=== PATIENT | male | born 1955 | race Caucasian/White ===

== ENCOUNTER → 2016-04-10 | Outpatient (CLI) | payer MEDICARE, OTHER ==
[2016-04-10 14:45] LABS: ALT 42 U/L (21-72); AST 21 U/L (17-59); Alkaline Phosphatase 56 U/L (38-126); Anion Gap 10 mmol/L; Blood Urea Nitrogen 15 mg/dL (9-20); Calcium 9.2 mg/dL (8.4-10.2); Carbon Dioxide 27 mmol/L (22-30); Chloride 107 mmol/L (98-107); Glucose 99 mg/dL (74-99); Non-African American GFR(MDRD) >60 (>60 ml/min/1.73 sqM); Potassium 4.4 mmol/L (3.5-5.1); Sodium 144 mmol/L (137-145); Total Bilirubin 0.7 mg/dL (0.2-1.3); Total Protein 6.1 g/dL (6.3-8.2)
[2016-04-10 15:51] LABS: Vitamin B12 292 pg/mL (239-931)
== END | disposition home or self-care (01) ==
LOC: LABWHC1 13:42
PROVIDERS: ATTEND Physician Assistant
DX: G35 Multiple sclerosis (principal); E53.8 Deficiency of other specified B group vitamins; F43.23 Adjustment disorder with mixed anxiety and depressed mood; M48.02 Spinal stenosis, cervical region; M51.9 Unspecified thoracic, thoracolumbar and lumbosacral intervertebral disc disorder; I25.10 Atherosclerotic heart disease of native coronary artery without angina pectoris
CPT/HCPCS: 36415; 80053; 82306; 82607; 82746

== ENCOUNTER → 2017-09-07 | Outpatient (CLI) | payer MEDICARE, OTHER ==
[2017-09-07 14:16] LABS: Blood Urea Nitrogen 14 mg/dL (9-20)
[2017-09-07 16:47] LABS: ALT 47 U/L (21-72); AST 29 U/L (17-59); Albumin 3.9 g/dL (3.5-5.0); Alkaline Phosphatase 59 U/L (38-126); Anion Gap 11 mmol/L; Blood Urea Nitrogen 13 mg/dL (9-20); Carbon Dioxide 26 mmol/L (22-30); Chloride 106 mmol/L (98-107); Glucose 87 mg/dL (74-99); Potassium 4.2 mmol/L (3.5-5.1); Sodium 143 mmol/L (137-145); Total Bilirubin 0.3 mg/dL (0.2-1.3); Total Protein 5.8 g/dL (6.3-8.2)
[2017-09-07 17:02] LABS: T4, Free (Free Thyroxine) 1.16 ng/dL (0.78-2.19)
[2017-09-07 18:24] LABS: Basophils % (A) 0 %; Eosinophils % (A) 1 %; HCT 41.2 % (39.0-53.0); HGB 13.7 gm/dL (13.0-17.5); Lymphocytes # (A) 0.6 k/uL (1.0-4.8); Lymphocytes % (A) 24 %; MCH 31.7 pg (25.0-35.0); MCHC 33.3 g/dL (31.0-37.0); MCV 95.1 fL (80.0-100.0); Mean Platelet Volume 7.2; Monocytes # (A) 0.2 k/uL (0-1.0); Monocytes % (A) 10 %; Neutrophils # (A) 1.5 k/uL (1.3-7.7); Neutrophils % (A) 61 %; Platelet Count 140 k/uL (150-450); RBC 4.33 m/uL (4.30-5.90); RDW 13.3 % (11.5-15.5); WBC 2.4 k/uL (3.8-10.6)
--- NOTE | 2017-09-07 23:43 | MR ---
EXAMINATION TYPE: MR brain/cspine wo/w DATE OF EXAM: 09/07/2017 COMPARISON: 06/01/2014 and 05/31/2014 HISTORY: Neck pain, MS follow up, compare to prior MRI TECHNIQUE: Multiplanar, multisequence images of the brain and brainstem is performed without and with IV contras t, utilizing 7.5 mL intravenous Gadavist . FINDINGS: There is mild cerebral cortical atrophy. There is no mass effect nor midline shift. There i s no sign of intracranial hemorrhage. There is a 3 mm focus of increased signal in the right side of the german on the FLAIR images. There is 7 mm focus of increased signal in the anterior limb left inter nal capsule. There is no mass effect nor midline shift. There is no sign of intracranial hemorrhage. Corpus callosum appears intact. The sella turcica appears normal. There is no pathologic enhancement. The cervical spine exam shows normal alignment of the vertebra. There is small posterior disc bulges at C4-5 C5-6. There is no spinal stenosis. There is developmentally adequate spinal canal. Cervical s felix cord has fairly normal signal pattern. There is a subtle small area of increased signal in the posterior cervical spinal cord on the T2 images on the sagittal exam and is present at C2 level. I se e no cervical spine pathologic enhancement. IMPRESSION: There are 2 foci of increased signal in the white matter as above in the left internal ca psule and right side of the german. These appear new compared to old exam of 05/31/2014. These are nonsp ecific and are not a typical pattern for demyelinating disease. This is most likely small vessel isch emia related. Cervical spine shows posterior mild disc herniations at C4-5 C5-6 without spinal stenosis. There is s ubtle small area of increased signal on the T2 images posteriorly at C2 level which could relate to d emyelinating disease and appears smaller than the last exam.
== END | disposition home or self-care (01) ==
LOC: RADMRIMAIN 13:37
PROVIDERS: ATTEND Psychiatry & Neurology Neurology
DX: M50.221 Other cervical disc displacement at C4-C5 level (principal); R93.0 Abnormal findings on diagnostic imaging of skull and head, not elsewhere classified; G35 Multiple sclerosis; E55.9 Vitamin D deficiency, unspecified
CPT/HCPCS: 84207; 84439; 84481; 80053; 82607; 82565; 84443; 84520; 85025; 82306; 70553; 72156; 36415; A9581

== ENCOUNTER → 2017-09-09 | Outpatient (CLI) | payer MEDICARE, OTHER ==
--- NOTE | 2017-09-09 16:16 | MR ---
EXAMINATION TYPE: MR thoracic spine wo/w con DATE OF EXAM: 09/09/2017 COMPARISON: NONE HISTORY: Multiple sclerosis/Thoracic pain CONTRAST: Standard multiplanar, multisequence MRI of the thoracic spine per departmental protocol was performed utilizing 7.5 mL intravenous Gadavist gadolinium contrast. FINDINGS: The thoracic vertebral bodies maintain normal vertebral body heights and alignment. Bone ma rrow signal is within normal limits. The thoracic cord demonstrates normal signal throughout. No extr adural suspicious fluid collections. Mild epidural lipomatosis is noted of the midthoracic level post eriorly. Specifically on FLAIR sagittal sequence no abnormal cord signal is seen within the thoracic spine. On postcontrast images there is no abnormal enhancement of the thoracic spine or vertebral bod ies. At T8-T9 there is a very small right paracentral disc herniation without spinal canal stenosis or leonid ral foraminal narrowing. T9-T10 there is a very small right eccentric disc bulge without neural foraminal narrowing or spinal canal stenosis. Within the remainder of the thoracic spine there is no evidence of significant disc disease, spinal c anal stenosis or neural foraminal narrowing. The paraspinal muscles are unremarkable. Minimal bibasil ar subsegmental atelectasis is seen dependently within the lungs. IMPRESSION: 1. Small right paracentral disc herniation at T8-T9 without spinal canal stenosis or neural foraminal narrowing. 2. Mild degenerative disc disease at T9-T10 without spinal canal stenosis or neural foraminal narrowi ng. 3. No demyelinating plaque seen within the thoracic cord. No abnormal contrast enhancement.
== END | disposition home or self-care (01) ==
LOC: RADMRIMAIN 14:32
PROVIDERS: ATTEND Psychiatry & Neurology Neurology
DX: M51.24 Other intervertebral disc displacement, thoracic region (principal); M51.34 Other intervertebral disc degeneration, thoracic region; M54.2 Cervicalgia; G35 Multiple sclerosis
CPT/HCPCS: 72157; A9581

== ENCOUNTER → 2017-11-15 | Outpatient (CLI) | payer MEDICARE ==
[2017-11-15 15:09] LABS: Basophils % (A) 1 %; Eosinophils % (A) 1 %; HCT 39.5 % (39.0-53.0); HGB 13.3 gm/dL (13.0-17.5); Lymphocytes # (A) 0.6 k/uL (1.0-4.8); Lymphocytes % (A) 19 %; MCH 31.5 pg (25.0-35.0); MCHC 33.6 g/dL (31.0-37.0); MCV 93.7 fL (80.0-100.0); Mean Platelet Volume 7.3; Monocytes # (A) 0.3 k/uL (0-1.0); Monocytes % (A) 10 %; Neutrophils # (A) 2.1 k/uL (1.3-7.7); Neutrophils % (A) 67 %; Platelet Count 156 k/uL (150-450); RBC 4.21 m/uL (4.30-5.90); RDW 13.1 % (11.5-15.5); WBC 3.1 k/uL (3.8-10.6)
[2017-11-15 15:21] LABS: ALT 41 U/L (21-72); AST 20 U/L (17-59); Alkaline Phosphatase 53 U/L (38-126); Anion Gap 7 mmol/L; Blood Urea Nitrogen 16 mg/dL (9-20); Calcium 8.9 mg/dL (8.4-10.2); Carbon Dioxide 25 mmol/L (22-30); Chloride 108 mmol/L (98-107); Glucose 106 mg/dL (74-99); Potassium 4.2 mmol/L (3.5-5.1); Sodium 140 mmol/L (137-145); Total Bilirubin 0.4 mg/dL (0.2-1.3)
[2017-11-15 18:56] LABS: Vitamin D 25 Hydroxy 21.7 ng/mL (30.0-100.0)
== END | disposition home or self-care (01) ==
LOC: LABWHC1 14:16
PROVIDERS: ATTEND Nurse Practitioner Acute Care
DX: R25.2 Cramp and spasm (principal); E55.9 Vitamin D deficiency, unspecified; R53.83 Other fatigue; G35 Multiple sclerosis
CPT/HCPCS: 36415; 80053; 82306; 82607; 85025

== ENCOUNTER → 2018-02-14 | Outpatient (CLI) | payer MEDICARE ==
[2018-02-14 17:29] LABS: Basophils % (A) 1 %; Eosinophils % (A) 1 %; HCT 41.8 % (39.0-53.0); HGB 13.7 gm/dL (13.0-17.5); Lymphocytes # (A) 0.6 k/uL (1.0-4.8); Lymphocytes % (A) 19 %; MCH 31.6 pg (25.0-35.0); MCHC 32.8 g/dL (31.0-37.0); MCV 96.3 fL (80.0-100.0); Mean Platelet Volume 6.5; Monocytes # (A) 0.3 k/uL (0-1.0); Monocytes % (A) 9 %; Neutrophils # (A) 2.1 k/uL (1.3-7.7); Neutrophils % (A) 67 %; Platelet Count 161 k/uL (150-450); RBC 4.34 m/uL (4.30-5.90); RDW 12.9 % (11.5-15.5); WBC 3.2 k/uL (3.8-10.6)
== END ==
LOC: LABWHC1 15:28
PROVIDERS: ATTEND Nurse Practitioner Acute Care
DX: G35 Multiple sclerosis (principal); Z51.81 Encounter for therapeutic drug level monitoring
CPT/HCPCS: 36415; 85025

== ENCOUNTER → 2018-08-25 | Outpatient (CLI) | payer MEDICARE | END | disposition home or self-care (01) | LOC: LABWHC1 13:17 | PROVIDERS: ATTEND Nurse Practitioner Acute Care | DX: E55.9 Vitamin D deficiency, unspecified (principal); R53.83 Other fatigue | CPT/HCPCS: 36415; 84207 ==

== ENCOUNTER → 2018-10-13 | Outpatient (CLI) | payer MEDICARE, OTHER ==
--- NOTE | 2018-10-13 15:19 | US ---
EXAMINATION TYPE: US venous doppler duplex LE RT DATE OF EXAM: 10/13/2018 2:30 PM COMPARISON: NONE CLINICAL HISTORY: M79.661 PAIN IN RT LOWER LIMB. Right lower leg pain in the mornings x 5 days SIDE PERFORMED: Right TECHNIQUE: The lower extremity deep venous system is examined utilizing real time linear array sonog ayana with graded compression, doppler sonography and color-flow sonography. VESSELS IMAGED: External Iliac Vein (EIV) Common Femoral Vein Deep Femoral Vein Greater Saphenous Vein * Femoral Vein Popliteal Vein Small Saphenous Vein * Proximal Calf Veins (* superficial vessels) Grayscale, color doppler, spectral doppler imaging performed of the deep veins of the right lower ext remity. There is normal flow, compressibility, vascular waveforms. Right Leg: Appears negative for DVT IMPRESSION: No sonographic evidence of deep venous thrombosis within the right lower extremity.
== END | disposition home or self-care (01) ==
LOC: RADUSWWP 14:08
PROVIDERS: ATTEND Family Medicine
DX: M79.661 Pain in right lower leg (principal)

== ENCOUNTER → 2019-08-25 | Outpatient (CLI) | payer MEDICARE, OTHER ==
[2019-08-25 13:18] LABS: HCT 43.7 % (39.0-53.0); HGB 14.2 gm/dL (13.0-17.5); MCHC 32.6 g/dL (31.0-37.0); MCV 95.2 fL (80.0-100.0); Mean Platelet Volume 7.3; Platelet Count 174 k/uL (150-450); RBC 4.59 m/uL (4.30-5.90); RDW 12.4 % (11.5-15.5); WBC 3.9 k/uL (3.8-10.6)
[2019-08-25 19:53] LABS: African American GFR (CKD) 107.9 (60.0-200.0); Anion Gap 6.7 mmol/L (4.00-12.00); Carbon Dioxide 26.3 mmol/L (21.6-31.8); Non-African American GFR(CKD) 93.1 (60.0-200.0); Potassium 4.7 mmol/L (3.5-5.5)
== END | disposition home or self-care (01) ==
LOC: LABWHC1 12:11
PROVIDERS: ATTEND Internal Medicine Interventional Cardiology
DX: Z11.59 Encounter for screening for other viral diseases (principal)
CPT/HCPCS: 36415; 80051; 82565; 84520; 85027; 87635

== ENCOUNTER → 2019-08-30 | Day surgery (SDC) | payer MEDICARE, OTHER ==
[2019-08-29 09:46] VITALS: BMI 26.2
[~2019-08-30] MED LIST: ALPRAZolam 0.25 MG TAB PO PRN; ALPRAZolam 0.5 MG TAB PO PRN; ASPIRIN 325 MG TAB PO ONE; ATORVASTATIN 80 MG TAB PO ONE; BIVALIRUDIN 250 MG in SODIUM CHLORIDE 0.9% 50 ML IV ONE; BIVALIRUDIN BOLUS 250 MG/50 ML IV ONE; CLOPIDOGREL 75 MG TAB ONE; CLOPIDOGREL 75 MG TAB PO ONE; HEPARIN SODIUM 1,000 UN/ML (10ML VL) IV ONE; HYDROmorphone 1 MG/ML 1 ML SYRINGE IVP ONE; HYDROmorphone 1 MG/ML 1 ML SYRINGE ONE; IOPAMIDOL-370 100ML BTL INJ ONE; LIDOCAINE 1% INJ 10MG/ML (20 ML MDV) SQ ONE; MIDAZOLAM 2 MG/2 ML VIAL IVP ONE; NITROGLYCERIN SL TABS 0.4 MG TAB SUBLINGUAL PRN; SODIUM CHLORIDE 0.9% 1,000 ML IV SCH; SODIUM CHLORIDE 0.9% 1,000 ML in EMPTY BAG 1 BAG IV ONE; VERAPAMIL SYRINGE (5 MG/10 ML) INTRAARTER ONE
[2019-08-30 11:25] VITALS: RESP 16; TEMP 97.5
[2019-08-30 11:31] LABS: Basophils % (A) 1 %; Eosinophils # (A) 0.1 k/uL (0-0.7); Eosinophils % (A) 3 %; HCT 41.3 % (39.0-53.0); HGB 14.2 gm/dL (13.0-17.5); Lymphocytes # (A) 0.8 k/uL (1.0-4.8); Lymphocytes % (A) 24 %; MCH 32.6 pg (25.0-35.0); MCHC 34.4 g/dL (31.0-37.0); MCV 94.6 fL (80.0-100.0); Mean Platelet Volume 7.5; Monocytes # (A) 0.3 k/uL (0-1.0); Monocytes % (A) 10 %; Neutrophils # (A) 1.9 k/uL (1.3-7.7); Neutrophils % (A) 60 %; Platelet Count 156 k/uL (150-450); RBC 4.36 m/uL (4.30-5.90); RDW 12.5 % (11.5-15.5); WBC 3.2 k/uL (3.8-10.6)
[2019-08-30 11:39] LABS: African American GFR (CKD) >90 (>60 ml/min/1.73 sqM); Anion Gap 7 mmol/L; Blood Urea Nitrogen 16 mg/dL (9-20); Calcium 8.6 mg/dL (8.4-10.2); Carbon Dioxide 22 mmol/L (22-30); Chloride 110 mmol/L (98-107); Glucose 94 mg/dL (74-99); Non-African American GFR(CKD) >90 (>60 ml/min/1.73 sqM); Potassium 4.8 mmol/L (3.5-5.1); Sodium 139 mmol/L (137-145)
--- NOTE | 2019-08-30 14:44 | CC ---
CARDIAC CATHETERIZATION REPORT DATE OF SERVICE: 08/30/2019 PROCEDURE: 1. Left heart catheterization and coronary angiography. 2. PTCA and stenting of a restenotic lesion of an in-stent restenosis in mid LAD with a drug-eluting stent. PERFORMED BY: Dr. Emily Keenan. Moderate conscious sedation time was 51 minutes. Patient was administered Versed. Oxygen saturation, hemodynamics, EKG were monitored closely. He also received Dilaudid. CLINICAL INFORMATION: Mr. Maxime Crawford is a 64-year-old gentleman with a history of marijuana abuse, past history of smoking which he does smoke occasionally. He has known CAD, hypertension and hypercholesterolemia. In 2007, he underwent stenting of mid LAD at [facility] in [place]. In 2012, this LAD was patent. I performed stenting of a very highly diseased mid RCA of a dominant vessel with excellent result. He has been having symptoms of angina and also had abnormal stress test. Therefore, he was advised cardiac catheterization after due discussion regarding risks, benefits, and options. PROCEDURE NOTE: Under local anesthesia and strict aseptic precautions, a 6-Malay sheath was placed in the right radial artery. Using a 3.5, right and left catheters I performed coronary angiography and noted that the RCA was widely patent, but LAD had a significant restenotic lesion in the proximal half of the stent of about 80% to 90% with sluggish flow. He was advised intervention that was performed in the same setting. LV pressures were checked with the same right catheter but I did not do LV-gram. Following the procedure, I took the sheath out and applied a TR band as per protocol and saturation of the fingers of the right hand was 91%. Patient tolerated the procedure well. CARDIAC CATHETERIZATION FINDINGS: The left ventricular end-diastolic pressure was about 12 mmHg. There was no gradient across the aortic valve. CORONARY ANGIOGRAPHY FINDINGS: RIGHT CORONARY ARTERY: Technically this is a dominant vessel, widely patent. No significant disease. The mid segment which was stented before is widely patent with a good brisk flow and the distal branches also are free of significant disease. LEFT MAIN CORONARY ARTERY: Short patent vessel free of significant disease that bifurcates into LAD and circumflex. There is some plaque at the ostium of the left main, but no more than 10% to 15% disease. LEFT ANTERIOR DESCENDING CORONARY ARTERY: Good caliber vessel extends along the anterior wall proximally before the origin of the diagonal branch and also after the origin of the diagonal branch, There is a stent which was placed in 2007. The proximal half of the stent has 80% stenosis. Flow is somewhat sluggish. The diagonal has a brisk flow. Septal branches are free of significant disease. The vessel runs all the way to the apex, supplying a sizable amount of myocardium. The stent therefore jails the diagonal branch and there is restenosis of the proximal half of the stent. LEFT POSTERIOR CIRCUMFLEX CORONARY ARTERY: Technically. a nondominant vessel gives off a high first obtuse marginal that continues in the AV groove and comes out as post lateral branch but there is also a left atrial circumflex branch. All the branches of circumflex are free of significant disease. Left ventriculogram was not performed. FINAL IMPRESSION: This patient has a widely patent dominant RCA that was stented in 2012. Mid LAD that was stented in 2007 in the proximal half with 80% restenotic lesion noted. The diagonal is free of significant disease and circumflex has minor irregularities. Filling pressures are lactic acceptable and no gradient across aortic valve. RECOMMENDATIONS: I recommended PCI of RCA of LAD that was performed in the same setting. [facility] PROCEDURE DETAILS: I used a JL3.5 guide catheter and a Whisper wire to cross the lesion. A 2.5 caliber 20 mm NC Trek balloon was used to pre-dilate the lesion. I then deployed a 23 mm long 3.0 caliber Xience stent. Good result was achieved, but the proximal half still had some narrowing. I used a 3.25 caliber NC trek of 12 mm length and went up to 14 atmospheres and expanded the proximal half of the stent. Excellent angiographic result was achieved. Patient had chest pain, but no significant EKG changes. Excellent angiographic result without complication was achieved. Patient received Angiomax bolus and infusion as per protocol. He also received 300 mg of Plavix. He was already on aspirin and Plavix. Excellent result was achieved and results were discussed with the patient and friend. He was sent to the room in a stable condition and I expect that he will be discharged later this evening if he remains stable. MMODL / IJN: [id number] /
[2019-08-30 15:19] VITALS: BP 162/74; PULSE 54
== END ==
LOC: CATHCVL 10:45
PROVIDERS: ATTEND Internal Medicine Interventional Cardiology
DX: T82.855A Stenosis of coronary artery stent, initial encounter (principal); I25.110 Atherosclerotic heart disease of native coronary artery with unstable angina pectoris; R94.39 Abnormal result of other cardiovascular function study; R06.02 Shortness of breath; R07.89 Other chest pain; I10 Essential (primary) hypertension; I73.9 Peripheral vascular disease, unspecified; E78.00 Pure hypercholesterolemia, unspecified; E78.5 Hyperlipidemia, unspecified; F17.210 Nicotine dependence, cigarettes, uncomplicated; Z95.5 Presence of coronary angioplasty implant and graft; Z79.82 Long term (current) use of aspirin; Z79.899 Other long term (current) drug therapy; Z79.02 Long term (current) use of antithrombotics/antiplatelets
CPT/HCPCS: 93458; 80048; 85025; C9600; C1769; C1887; C1725 ×2; C1874; J2250; J2001; J1644; J1170; J0583; Q9967

== ENCOUNTER → 2019-09-28 | Outpatient (CLI) | payer MEDICARE, OTHER ==
[2019-09-28 14:53] LABS: Basophils % (A) 1 %; Eosinophils # (A) 0.1 k/uL (0-0.7); Eosinophils % (A) 3 %; HCT 40.9 % (39.0-53.0); HGB 13.7 gm/dL (13.0-17.5); Lymphocytes # (A) 0.6 k/uL (1.0-4.8); Lymphocytes % (A) 23 %; MCH 31.8 pg (25.0-35.0); MCHC 33.4 g/dL (31.0-37.0); MCV 95.1 fL (80.0-100.0); Mean Platelet Volume 7.3; Monocytes # (A) 0.3 k/uL (0-1.0); Monocytes % (A) 11 %; Neutrophils # (A) 1.6 k/uL (1.3-7.7); Neutrophils % (A) 60 %; Platelet Count 150 k/uL (150-450); RDW 12.9 % (11.5-15.5); WBC 2.6 k/uL (3.8-10.6)
[2019-09-28 18:42] LABS: Albumin 4.1 g/dL (3.80-4.90); Albumin/Globulin Ratio 2.56 (1.60-3.17); Bilirubin, Conjugated 0.2 mg/dL (0.20-0.40); Bilirubin,Unconjugated 0.3 mg/dL; Globulin 1.6 g/dL (1.6-3.3); Total Bilirubin 0.5 mg/dL (0.2-1.2); Total Protein 5.7 g/dL (6.2-8.2)
== END | disposition home or self-care (01) ==
LOC: LABWHC1 13:43
PROVIDERS: ATTEND Nurse Practitioner Family
DX: G35 Multiple sclerosis (principal)
CPT/HCPCS: 36415; 80076; 85025; 86787

== ENCOUNTER → 2019-12-20 | Outpatient (CLI) | payer MEDICARE, OTHER | END | disposition home or self-care (01) | LOC: LABWHC1 14:32 | PROVIDERS: ATTEND Nurse Practitioner Family | DX: G35 Multiple sclerosis (principal) | CPT/HCPCS: 36415 ==

== ENCOUNTER → 2020-01-11 | Outpatient (CLI) | payer MEDICARE, OTHER ==
[2020-01-12 10:20] LABS: Hepatitis B Core IgM Non-Reactive (Non-Reactive); Hepatitis B Surface AB- Quant 3.5 mIU/mL; Hepatitis B Surface Antibody Non-Reactive (Non-Reactive); Hepatitis B Surface Antigen Non-Reactive (Non-Reactive)
== END | disposition home or self-care (01) ==
LOC: LABWHC1 14:08
PROVIDERS: ATTEND Psychiatry & Neurology Neurology
DX: G35 Multiple sclerosis (principal)
CPT/HCPCS: 36415; 86704; 86705; 86706; 87340

== ENCOUNTER → 2021-01-03 | Outpatient (CLI) | payer MEDICARE, OTHER ==
[2021-01-03 20:49] LABS: Basophils # (A) 0.03 X 10*3/uL (0.00-0.10); Basophils % (A) 0.7 %; Eosinophils # (A) 0.14 X 10*3/uL (0.04-0.35); Eosinophils % (A) 3.5 %; HCT 44.7 % (39.6-50.0); HGB 14.7 g/dL (13.0-17.0); Lymphocytes # (A) 0.89 X 10*3/uL (0.90-5.00); Lymphocytes % (A) 22.1 %; MCH 30.9 pg (27.0-32.0); MCHC 32.9 g/dL (32.0-37.0); MCV 94.1 fL (80.0-97.0); Mean Platelet Volume 9.7 fL (9.5-12.2); Monocytes # (A) 0.54 X 10*3/uL (0.20-1.00); Monocytes % (A) 13.4 %; Neutrophils # (A) 2.41 X 10*3/uL (1.80-7.70); Neutrophils % (A) 60.1 %; Platelet Count 181 X 10*3/uL (140-440); RBC 4.75 X 10*6/uL (4.40-5.60); RDW 12.9 % (11.5-14.5); WBC 4.02 X 10*3/uL (4.50-10.00)
[2021-01-03 23:18] LABS: African American GFR (CKD) 112.5 (60.0-200.0); Albumin 4.5 g/dL (3.8-4.9); Albumin/Globulin Ratio 2.69 (1.60-3.17); Anion Gap 11.8 mmol/L (4.00-12.00); BUN/Creat Ratio 21.94 Ratio (12.00-20.00); Blood Urea Nitrogen 15.6 mg/dL (9.0-27.0); Carbon Dioxide 22.4 mmol/L (21.6-31.8); Chol/HDL Ratio 2.28 Ratio; Globulin 1.7 g/dL (1.6-3.3); LDL Cholesterol,Calculated 74.3 mg/dL (0.0-131.0); Potassium 4.6 mmol/L (3.5-5.5); Total Bilirubin 0.4 mg/dL (0.30-1.20); Total Protein 6.1 g/dL (6.2-8.2); Triglycerides 83.4 mg/dL (0.00-149.00); VLDL Calculation 16.68 mg/dL (5.00-40.00)
== END | disposition home or self-care (01) ==
LOC: LABWHC1 12:39
PROVIDERS: ATTEND Family Medicine
DX: I10 Essential (primary) hypertension (principal); E78.00 Pure hypercholesterolemia, unspecified; R35.1 Nocturia
CPT/HCPCS: 36415; 80053; 80061; 84443; 85025

== ENCOUNTER 2021-01-17 09:18 | Day surgery (SDC) | payer MEDICARE, OTHER ==
[2021-01-16 08:52] VITALS: BMI 28.1
[~2021-01-17 09:18] MED LIST changes: -ASPIRIN 325 MG TAB PO ONE; +ASPIRIN 325 MG TAB PO STA; -ATORVASTATIN 80 MG TAB PO ONE; +ATORVASTATIN 80 MG TAB PO STA; -BIVALIRUDIN 250 MG in SODIUM CHLORIDE 0.9% 50 ML IV ONE; -BIVALIRUDIN BOLUS 250 MG/50 ML IV ONE; -CLOPIDOGREL 75 MG TAB ONE; -CLOPIDOGREL 75 MG TAB PO ONE; -HEPARIN SODIUM 1,000 UN/ML (10ML VL) IV ONE; -HYDROmorphone 1 MG/ML 1 ML SYRINGE IVP ONE; -HYDROmorphone 1 MG/ML 1 ML SYRINGE ONE; -IOPAMIDOL-370 100ML BTL INJ ONE; -LIDOCAINE 1% INJ 10MG/ML (20 ML MDV) SQ ONE; -MIDAZOLAM 2 MG/2 ML VIAL IVP ONE; -SODIUM CHLORIDE 0.9% 1,000 ML IV SCH; -SODIUM CHLORIDE 0.9% 1,000 ML in EMPTY BAG 1 BAG IV ONE; +SODIUM CHLORIDE 0.9% 1,000 ML in EMPTY BAG 1 BAG IV SCH; -VERAPAMIL SYRINGE (5 MG/10 ML) INTRAARTER ONE
[2021-01-17] MEDS ORDERED: SODIUM CHLORIDE 0.9% 1,000 ML IV ONE (09:43)
[2021-01-17 10:11] VITALS: RESP 16; TEMP 98
[2021-01-17] MEDS ORDERED: LIDOCAINE 1% INJ 10MG/ML (20 ML MDV) ONE (10:58)
[2021-01-17] MEDS ORDERED: HEPARIN SODIUM 1,000 UN/ML (10ML VL) ONE (10:58)
[2021-01-17] MEDS ORDERED: VERAPAMIL 2.5 MG/ML 2 ML AMP ONE (10:58)
[2021-01-17] MEDS ORDERED: fentaNYL (PF) 50 MCG/ML 2 ML AMP IV ONE (11:05)
[2021-01-17] MEDS ORDERED: MIDAZOLAM 2 MG/2 ML VIAL IV ONE (11:05)
[2021-01-17] MEDS ORDERED: LIDOCAINE 1% INJ 10MG/ML (20 ML MDV) SQ ONE (11:07)
[2021-01-17] MEDS ORDERED: fentaNYL (PF) 50 MCG/ML 2 ML AMP ONE (11:07)
[2021-01-17] MEDS ORDERED: VERAPAMIL SYRINGE (5 MG/10 ML) INTRAARTER ONE (11:08)
[2021-01-17] MEDS ORDERED: HEPARIN SODIUM 1,000 UN/ML (10ML VL) IV ONE (11:16)
[2021-01-17] MEDS ORDERED: IOPAMIDOL-370 100ML BTL INJ ONE (11:21)
[2021-01-17] MEDS ORDERED: SODIUM CHLORIDE 0.9% 1,000 ML IV SCH (11:25)
--- NOTE | 2021-01-17 11:57 | CC ---
CARDIAC CATHETERIZATION REPORT DATE OF SERVICE: 01/17/2021 PROCEDURE: Left heart catheterization, coronary angiography. PERFORMED BY: Dr. Emily Keenan. Moderate conscious sedation time was 15 minutes. Patient was administered Versed and fentanyl. Oxygen saturation, hemodynamics and EKG were monitored closely. CLINICAL INFORMATION: Mr. Maxime Crawford is a 65-year-old gentleman with a known history of multiple sclerosis, hypertension, hyperlipidemia and significant CAD with previous stenting of mid LAD and also distal RCA. The last procedure was in August 2019 when I performed intervention of the restenotic LAD stent with a good result. He came into the office with symptoms strongly suggestive of unstable angina with chest pressure and heaviness even with day-to-day activities, requiring nitroglycerin. He also smokes and uses marijuana. He was advised cardiac cath after due discussion regarding risks, benefits and options. PROCEDURE NOTE: Under local anesthesia and strict aseptic precautions, a 6-Belarusian introducer was used to cannulate the right radial artery. Using a JL3.5 and JR4 catheters, I performed coronary angiography, and the same right catheter was used to check LV pressures. LV gram was not performed. The sheath was taken out and TR band applied as per protocol. Saturation in the fingers of the right hand was more than 95%. CARDIAC CATHETERIZATION FINDINGS: The left ventricular end-diastolic pressure was about 8-10 mmHg without any gradient across the aortic valve. CORONARY ANGIOGRAPHY FINDINGS: RIGHT CORONARY ARTERY: Dominant vessel. No significant disease. The previously stented segment in the distal aspect of the RCA is widely patent. It bifurcates into PDA and PLV, all of which have mild calcification but no significant disease. Dominant RCA has no significant disease and the stented segment is widely patent. LEFT MAIN CORONARY ARTERY: Short, patent, disease-free vessel that bifurcates into LAD and circumflex. No significant disease in left main. LEFT ANTERIOR DESCENDING CORONARY ARTERY: Good-caliber vessel extends along the anterior wall, gives off diagonal branch and several septal branches. The stented segment jails the diagonal. The stented segment is widely patent. Diagonal is patent. LAD in the rest of the area is patent. No significant disease noted in the LAD. LEFT POSTERIOR CIRCUMFLEX CORONARY ARTERY: Technically a nondominant vessel with good caliber, good distribution. Single obtuse marginal runs laterally distal posterolateral branch and AV groove branch. All branches of circumflex are free of significant disease. Left ventriculogram was not performed. FINAL IMPRESSION: This patient has no significant restenosis in the LAD or RCA that was stented before. Normal filling pressures. Right-dominant system. No gradient. RECOMMENDATIONS: Results were discussed with the patient and friend. He can be discharged today and he will follow up with me in the office next week. Continued medical therapy, smoking cessation and marijuana cessation advised. MMODL / IJN: [id number] /
[2021-01-17 16:38] VITALS: BP 132/75; PULSE 55
== END 2021-01-17 16:49 | disposition home or self-care (01) ==
LOC: CATHCVL 09:18
PROVIDERS: ATTEND Internal Medicine Interventional Cardiology
DX: I25.10 Atherosclerotic heart disease of native coronary artery without angina pectoris (principal); I10 Essential (primary) hypertension; G35 Multiple sclerosis; E78.5 Hyperlipidemia, unspecified; Z95.5 Presence of coronary angioplasty implant and graft; Z20.822 Contact with and (suspected) exposure to COVID-19
CPT/HCPCS: 93458; 87635; C1894; J2250; J2001; J3010; J1644; Q9967

== ENCOUNTER → 2024-03-10 | Outpatient (CLI) | payer MEDICARE, OTHER ==
[2024-03-10 19:46] LABS: BUN/Creat Ratio 15.44 Ratio (12.00-20.00); Blood Urea Nitrogen 13.9 mg/dL (9.0-27.0); Chloride 108 mmol/L (96-109); Glucose 97 mg/dL (70-110); Potassium 4.8 mmol/L (3.5-5.5); Sodium 146 mmol/L (135-145)
[2024-03-10 19:47] LABS: ALT 24 U/L (10-49); AST 20 U/L (14-35); Albumin 4.5 g/dL (3.8-4.9); Albumin/Globulin Ratio 2.65 Ratio (1.60-3.17); Alkaline Phosphatase 78 U/L (41-126); Calcium 9.4 mg/dL (8.7-10.3); Globulin 1.7 g/dL (1.6-3.3); Total Bilirubin 0.6 mg/dL (0.3-1.2); Total Protein 6.2 g/dL (6.2-8.2)
[2024-03-10 20:18] LABS: Basophils # (A) 0.04 X 10*3/uL (0.00-0.10); Basophils % (A) 1.1 %; Eosinophils % (A) 2.7 %; HCT 43.3 % (39.6-50.0); Lymphocytes # (A) 0.86 X 10*3/uL (0.90-5.00); Lymphocytes % (A) 23.2 %; MCH 32.3 pg (27.0-32.0); MCHC 32.3 g/dL (32.0-37.0); MCV 99.8 FL (80.0-97.0); Mean Platelet Volume 10.4 FL (9.5-12.2); Monocytes # (A) 0.37 X 10*3/uL (0.20-1.00); NRBC Per 100 WBC 0 X 10*3/uL (0.00-0.01); Neutrophils # (A) 2.33 X 10*3/uL (1.80-7.70); Neutrophils % (A) 62.7 %; Platelet Count 154 X 10*3/uL (140-440); RBC 4.34 X 10*6/uL (4.40-5.60); RDW 13.3 % (11.5-14.5); WBC 3.71 X 10*3/uL (4.50-10.00)
== END | disposition home or self-care (01) ==
LOC: LABWHC1 14:39
PROVIDERS: ATTEND Psychiatry & Neurology Psychosomatic Medicine
DX: Z13.30 Encounter for screening examination for mental health and behavioral disorders, unspecified (principal)
CPT/HCPCS: 36415; 80053; 82607; 82746; 84443; 85025

== ENCOUNTER → 2024-04-18 | Day surgery (SDC) | payer MEDICARE, OTHER ==
[~2024-04-18] MED LIST changes: -ALPRAZolam 0.25 MG TAB PO PRN; -ALPRAZolam 0.5 MG TAB PO PRN; -ASPIRIN 325 MG TAB PO STA; -ATORVASTATIN 80 MG TAB PO STA; +LACTATED RINGERS 1,000 ML IV SCH; +LIDOCAINE 1% (10MG/ML) FOR IV START INTRADERMA PRN; -NITROGLYCERIN SL TABS 0.4 MG TAB SUBLINGUAL PRN; +PROPOFOL 10 MG/ML 20 ML VIAL IV ONE; -SODIUM CHLORIDE 0.9% 1,000 ML in EMPTY BAG 1 BAG IV SCH
[2024-04-18 10:53] VITALS: TEMP 97.3
[2024-04-18] MEDS: LACTATED RINGERS 1,000 ML IV ONE (11:01)
[2024-04-18 11:03] LABS: Glucose,Whole Blood 100 mg/dL (70-110)
--- NOTE | 2024-04-18 11:47 | P.GSHP ---
History of Present Illness H&P Date: 04/18/24 Chief Complaint: Abnormal stool test 69-year-old male here for colonoscopy. Patient had his last colonoscopy 2.5 years ago. Had 3 polyps or so that were benign. Since then he had a stool test showing positive Cologuard result. Patient asymptomatic. Scheduled for hernia repair in a few weeks. Past Medical History Past Medical History: Coronary Artery Disease (CAD), COPD, Hypertension, Memory Impairment, Myocardial Infarction ([place]), Neurologic Disorder, Osteoarthritis (OA), Prostate Disorder Additional Past Medical History / Comment(s): hx migraines, Multiple Sclerosis(issues with balance-uses a cane), tinnitus, SOB with activity, "chest pressure"- most recent 6-8 mos. ago, hx colon cancer, enlarged prostate Last Myocardial Infarction Date:: 2008 History of Any Multi-Drug Resistant Organisms: None Reported Past Surgical History: Bowel Resection, Heart Catheterization With Stent, Hernia Repair, Orthopedic Surgery, Tonsillectomy Additional Past Surgical History / Comment(s): right hand 3rd finger surg(plate/pins), 2 cardiac stents, Rt. inguinal hernia repair Past Anesthesia/Blood Transfusion Reactions: No Reported Reaction Date of Last Stent Placement:: 2018 Smoking Status: Current some day smoker - Past Family History Father Family Medical History: CVA/TIA Mother Family Medical History: CVA/TIA Medications and Allergies Home Medications Medication Instructions Recorded Confirmed Type Clopidogrel [Plavix] 75 mg PO HS 05/16/14 04/18/24 History Multivitamin [Men's Multi-Vitamin] 1 each PO DAILY 05/16/14 04/18/24 History Simvastatin [Zocor] 40 mg PO Q2D 05/16/14 04/18/24 History Simvastatin [Zocor] 80 mg PO Q2D 05/16/14 04/18/24 History Aspirin 81 mg PO DAILY 08/29/19 04/18/24 History DULoxetine HCL [Cymbalta] 60 mg PO DAILY 08/29/19 04/18/24 History Terazosin [Hytrin] 1 mg PO HS 08/29/19 04/18/24 History Amantadine Liquid 10 ml PO 1200 01/16/21 04/18/24 History lamoTRIgine [LaMICtal] 25 mg PO HS 01/16/21 04/18/24 History lamoTRIgine [LaMICtal] 100 mg PO QAM 01/16/21 04/18/24 History Cholecalciferol [Vitamin D3 (10 10 mcg PO DAILY 08/14/21 04/18/24 History Mcg = 400 Iu)] Gabapentin [Neurontin] 400 mg PO QID 08/14/21 04/18/24 History Metoprolol Tartrate [Lopressor] 12.5 mg PO BID 08/14/21 04/18/24 History Diroximel Fumarate [Vumerity] 2 cap PO BID 04/04/24 04/18/24 History Nitroglycerin Sl Tabs [Nitrostat] 0.4 mg PO DIRECTED PRN 04/04/24 04/18/24 History buPROPion XL [Wellbutrin XL] 300 mg PO HS 04/04/24 04/18/24 History Allergies Allergy/AdvReac Type Severity Reaction Status Date / Time No Known Allergies Allergy Verified 04/18/24 10:47 Surgical - Exam Vital Signs Temp Pulse Resp BP Pulse Ox 97.3 F L 51 L 18 160/70 98 04/18/24 10:46 04/18/24 10:46 04/18/24 10:46 04/18/24 10:46 04/18/24 10:46 Physical exam: General: Well-developed, well-nourished HEENT: Normocephalic, sclerae nonicteric Abdomen: Nontender, nondistended Extremities: No edema Neuro: Alert and oriented Assessment and Plan (1) Abnormal stool test Narrative/Plan: Will proceed with colonoscopy at this time. Current Visit: Yes Status: Acute Code(s): R19.5 - OTHER FECAL ABNORMALITIES SNOMED Code(s): 382856976
--- NOTE | 2024-04-18 12:01 | P.PCN ---
Date of Procedure: 04/18/24 Procedure(s) Performed: PREOPERATIVE DIAGNOSIS: Abnormal Cologuard, history of polyps POSTOPERATIVE DIAGNOSIS: Small bleeding hemorrhoids, transverse colon polyp PROCEDURE: Colonoscopy with snare polypectomy ANESTHESIA: MAC SURGEON: Florentino Ortez M.D. SPECIMENS: Polyp ENDOSCOPIC PROCEDURE: The patient was placed on the endoscopy table in the left decubitus position. The Olympus colonoscope was inserted into the anus and passed under direct visualization to the ileocolonic anastomosis. In the transv erse colon a small polyp was seen and removed using the snare with cautery technique. The remainder of the transverse descending sigmoid and rectum was normal with the exception of a small chronically inflamed mildly bleeding internal/external hemorrhoids. This is likely the source of the recent abnormal Cologuard test. The patient was taken to the recovery room in stable condition per anesthesia guidelines. RECOMMENDATIONS: Await biopsy results. Recommend repeat colonoscopy 5 years. Would advise against further Cologuard testing as false positive rate given the patient's hemorrhoids will be likely.
[2024-04-18 12:27] VITALS: BP 170/84; PULSE 65; RESP 14
== END ==
LOC: ORWHC2ENDO 10:00
PROVIDERS: ATTEND Surgery
DX: D12.3 Benign neoplasm of transverse colon (principal); K64.4 Residual hemorrhoidal skin tags; G35 Multiple sclerosis; I10 Essential (primary) hypertension; I25.10 Atherosclerotic heart disease of native coronary artery without angina pectoris; I25.2 Old myocardial infarction; J44.9 Chronic obstructive pulmonary disease, unspecified; M19.90 Unspecified osteoarthritis, unspecified site; G43.909 Migraine, unspecified, not intractable, without status migrainosus; F32.A Depression, unspecified; N40.0 Benign prostatic hyperplasia without lower urinary tract symptoms; F17.200 Nicotine dependence, unspecified, uncomplicated; Z79.02 Long term (current) use of antithrombotics/antiplatelets; Z85.038 Personal history of other malignant neoplasm of large intestine; Z95.5 Presence of coronary angioplasty implant and graft; Z98.890 Other specified postprocedural states; Z79.51 Long term (current) use of inhaled steroids; Z79.899 Other long term (current) drug therapy
CPT/HCPCS: 45385; 88305

== ENCOUNTER 2024-04-28 05:36 | Day surgery (SDC) | payer MEDICARE, OTHER ==
[2024-04-26 15:01] VITALS: BMI 26.6
[2024-04-28] MEDS: IV FLUID CONTINUATION 1,000 ML IV ONE ×2 (06:27→09:50)
[2024-04-28] MEDS: LACTATED RINGERS 1,000 ML IV SCH (06:58)
[2024-04-28] MEDS: ONDANSETRON 4 MG/2 ML VIAL IVP ONE (06:58)
[2024-04-28] MEDS: DEXAMETHASONE SOD PHOSPHATE 4 MG/ML 1 ML VIAL IV ONE (06:58)
[2024-04-28] MEDS: ACETAMINOPHEN TAB 500 MG TAB PO PRN (06:58)
[2024-04-28] MEDS: MIDAZOLAM 2 MG/2 ML VIAL IV ONE (07:15)
[2024-04-28] MEDS: fentaNYL (PF) 50 MCG/ML 2 ML AMP IVP PRN (07:15)
--- NOTE | 2024-04-28 07:23 | P.ANPRN ---
Procedure Note - Anesthesia - Nerve Block Performed Bilateral Erector Spinae Single Time Out Performed: Yes Date of Procedure: 04/28/24 Procedure Start Time: 07:13 Procedure Stop Time: 07:20 Location of Patient: PreOp Indication: Acute Post-Operative Pain, Requested by Surgeon Sedation Type: Sedate with meaningful contact maintained Preparation: Sterile Prep Position: Prone Needle Types: Pajunk Needle Gauge: 21 Ultrasound used to visualize needle placement: Yes Ultrasound used to observe medication spread: Yes Injectate: 0.5% Ropivacaine (see comment for volume) (20 mL +10 mL of normal saline +4 mg dexamethasone per side) Blood Aspirated: No Pain Paresthesia on Injection Noted: No Resistance on Injection: Normal Image Stored and Saved: Yes Events: Uneventful and Well Tolerated
[2024-04-28] MEDS: HEPARIN SODIUM,PORCINE 5,000 UNIT/ML 1 ML VIAL SQ PRN (07:35)
[2024-04-28] MEDS ORDERED: SODIUM CHLORIDE 0.9% (PF) 10 ML VIAL ONE (07:36)
[2024-04-28] MEDS ORDERED: ROPIVACAINE 5 MG/ML 30 ML VIAL ONE (07:36)
[2024-04-28] MEDS ORDERED: fentaNYL (PF) 50 MCG/ML 2 ML AMP ONE (07:36)
[2024-04-28] MEDS ORDERED: SUCCINYLCHOLINE CHLORIDE 200 MG/10 ML VIAL IV ONE (07:36)
[2024-04-28] MEDS ORDERED: PROPOFOL 10 MG/ML 20 ML VIAL IV ONE (07:36)
[2024-04-28] MEDS ORDERED: LIDOCAINE 1% INJ 10MG/ML (20 ML MDV) ONE (07:36)
[2024-04-28] MEDS ORDERED: GLYCOPYRROLATE 0.2 MG/ML 2 ML VIAL ONE (07:36)
[2024-04-28] MEDS ORDERED: ROCURONIUM 10 MG/ML (5 ML VIAL) IV ONE (07:36)
[2024-04-28] MEDS ORDERED: DEXAMETHASONE SOD PHOSPHATE 4 MG/ML 1 ML VIAL ONE (07:36)
[2024-04-28] MEDS ORDERED: NEOSTIGMINE 1 MG/ML 10 ML VIAL ONE (07:36)
[2024-04-28] MEDS ORDERED: ePHEDrine 50 MG/ML 1 ML VIAL ONE (07:36)
[2024-04-28] MEDS ORDERED: MIDAZOLAM 2 MG/2 ML VIAL ONE (07:36)
--- NOTE | 2024-04-28 07:41 | P.GSHP ---
History of Present Illness H&P Date: 04/28/24 Chief Complaint: Incisional hernia 69-year-old male here for open repair incisional hernia with mesh. Patient with history of previous colectomy in 2016. Noticed a year or 2 ago a bulge at the upper aspect of his incision to the left. Golf ball size. Sore at times. Past Medical History Past Medical History: Coronary Artery Disease (CAD), Cancer, COPD, Hypertension, Memory Impairment, Myocardial Infarction ([place]), Neurologic Disorder, Osteoarthritis (OA), Prostate Disorder Additional Past Medical History / Comment(s): hx migraines, Multiple Sclerosis(issues with balance-uses a cane), tinnitus, SOB with activity, "chest pressure"- most recent 6-8 mos. ago, hx colon cancer-no chemo, no radiation, enlarged prostate Last Myocardial Infarction Date:: 2008 History of Any Multi-Drug Resistant Organisms: None Reported Past Surgical History: Bowel Resection, Heart Catheterization With Stent, Hernia Repair, Orthopedic Surgery, Tonsillectomy Additional Past Surgical History / Comment(s): right hand 3rd finger surg(plate/pins), 2 cardiac stents, Rt. inguinal hernia repair Past Anesthesia/Blood Transfusion Reactions: No Reported Reaction Additional Past Anesthesia/Blood Transfusion Reaction / Comment(s): No hx of blood transfusion to date. Date of Last Stent Placement:: 2018 Smoking Status: Current some day smoker - Past Family History Father Family Medical History: CVA/TIA Mother Family Medical History: CVA/TIA Medications and Allergies Home Medications Medication Instructions Recorded Confirmed Type Clopidogrel [Plavix] 75 mg PO HS 05/16/14 04/28/24 History Multivitamin [Men's Multi-Vitamin] 1 each PO DAILY 05/16/14 04/28/24 History Simvastatin [Zocor] 40 mg PO Q2D 05/16/14 04/28/24 History Simvastatin [Zocor] 80 mg PO Q2D 05/16/14 04/28/24 History Aspirin 81 mg PO DAILY 08/29/19 04/28/24 History DULoxetine HCL [Cymbalta] 60 mg PO DAILY 08/29/19 04/28/24 History Amantadine Liquid 10 ml PO 1200 01/16/21 04/28/24 History lamoTRIgine [LaMICtal] 25 mg PO HS 01/16/21 04/28/24 History lamoTRIgine [LaMICtal] 100 mg PO QAM 01/16/21 04/28/24 History Cholecalciferol [Vitamin D3 (10 10 mcg PO DAILY 08/14/21 04/28/24 History Mcg = 400 Iu)] Gabapentin [Neurontin] 400 mg PO QID 08/14/21 04/28/24 History Metoprolol Tartrate [Lopressor] 12.5 mg PO BID 08/14/21 04/28/24 History Diroximel Fumarate [Vumerity] 2 cap PO BID 04/04/24 04/28/24 History Nitroglycerin Sl Tabs [Nitrostat] 0.4 mg PO DIRECTED PRN 04/04/24 04/28/24 Hi story buPROPion XL [Wellbutrin XL] 300 mg PO HS 04/04/24 04/28/24 History Allergies Allergy/AdvReac Type Severity Reaction Status Date / Time No Known Allergies Allergy Verified 04/28/24 06:28 Surgical - Exam Vital Signs Temp Pulse Resp BP Pulse Ox 97.8 F 56 L 16 183/80 98 04/28/24 06:55 04/28/24 06:55 04/28/24 06:55 04/28/24 06:55 04/28/24 06:55 Physical exam: General: Well-developed, well-nourished HEENT: Normocephalic, sclerae nonicteric Abdomen: Nontender, nondistended, incarcerated incisional hernia left of midline superior Extremities: No edema Neuro: Alert and oriented Assessment and Plan (1) Incisional hernia Narrative/Plan: 69-year-old male with incarcerated incisional hernia. Will proceed with open repair and incarcerated incisional hernia with mesh. Risks of bleeding, infection, recurrence, bladder and bowel injury, numbness were discussed with the patient. The patient understands and wishes to proceed. Current Visit: Yes Status: Acute Code(s): K43.2 - INCISIONAL HERNIA WITHOUT OBSTRUCTION OR GANGRENE SNOMED Code(s): 097862423
[2024-04-28] MEDS: BUPIVACAINE (PF) 0.25% 30 ML VIAL SQ ONE ×2 (08:00→08:31)
--- NOTE | 2024-04-28 08:56 | P.OP ---
Date of Procedure: 04/28/24 Procedure(s) Performed: PREOPERATIVE DIAGNOSIS: Incarcerated incisional hernia POSTOPERATIVE DIAGNOSIS: Same PROCEDURE: Open repair incarcerated incisional hernia with mesh SURGEON: Dr. Ortez ANESTHESIA: General EBL: 10 cc OPERATIVE PROCEDURE DETAILS: Patient placed on the operating table in the supine position. Abdomen was prepped and draped in usual sterile fashion. The previous incision was re-incised. Dissection through the subcutaneous tissues took place using electrocautery. The patient had 1 main defect. A hernia was present coming through a fascial defect measuring 3.2 cm x 2 cm. A smaller 3 mm defect was seen just superior to this. The surrounding fat was freed from the underlying fascia. The preperitoneal space was dissected circumferentially using both blunt dissection and cautery. No bowel was seen. We were able to say within the preperitoneal space. Once we had adequate size a 6.4 cm mesh was placed beneath the fascia and sutured in place using transfascial 0 Ethibond sutures. The primary defect was then closed using a vest over pants technique with interrupted horizontal mattress 0 Ethibond sutures. The folding edge was sutured down using 0 Ethibond as well. The single smaller 3 mm defect was closed using a single 0 Ethibond stitch. The subcutaneous tissues were closed using 3-0 Vicryl sutures. The skin was closed using a running 4-0 Monocryl stitch. Skin glue and sterile dressings were applied. HERNIA CHARACTERISTICS: Length: 2 cm Width: 3.2 cm Type: Incarcerated incisional TYPE OF MESH USED: 6.4 cm Ventralex LOCATION OF MESH: Sublay FIXATION: 0 Ethibond PREOPERATIVE DISCUSSION ON SMOKING CESSASTION: Yes PREOPERATIVE DISCUSSION ON MORBID OBESITY: Yes PREOPERATIVE DISCUSSION ON APPROPRIATE USE OF NARCOTIC USE: Yes PREOPERATIVE EDUCATION: Multi Modal, Smoking Cessation and Weight Loss with BMI over 35. DISPOSITION: Stable to recovery room
[2024-04-28 09:01] VITALS: TEMP 98
[2024-04-28] MEDS: HYDROmorphone 0.5 MG/0.5 ML SYRINGE IVP PRN (09:15)
[2024-04-28 11:28] VITALS: BP 162/74; PULSE 69; RESP 14
[2024-04-28] MEDS ORDERED: IBUPROFEN 600 MG TAB PO SCH (12:00)
[2024-04-28] MEDS: TAMSULOSIN 0.4 MG CAP.ER.24H PO STA (12:35)
[2024-04-28] MEDS ORDERED: ACETAMINOPHEN TAB 325 MG TAB PO SCH (15:00)
== END 2024-04-28 13:15 | disposition home or self-care (01) ==
LOC: OR 05:36
PROVIDERS: ATTEND Surgery
DX: K43.0 Incisional hernia with obstruction, without gangrene (principal); G89.18 Other acute postprocedural pain; I25.10 Atherosclerotic heart disease of native coronary artery without angina pectoris; J44.9 Chronic obstructive pulmonary disease, unspecified; I25.2 Old myocardial infarction; G35 Multiple sclerosis; M19.90 Unspecified osteoarthritis, unspecified site; I10 Essential (primary) hypertension; N42.89 Other specified disorders of prostate; F32.A Depression, unspecified; F17.200 Nicotine dependence, unspecified, uncomplicated; Z79.02 Long term (current) use of antithrombotics/antiplatelets; Z85.038 Personal history of other malignant neoplasm of large intestine; Z90.49 Acquired absence of other specified parts of digestive tract; Z95.5 Presence of coronary angioplasty implant and graft; Z98.890 Other specified postprocedural states; Z79.899 Other long term (current) drug therapy; Z79.51 Long term (current) use of inhaled steroids
CPT/HCPCS: 64999; 49592; C1781; J2250; J0330; J1644; J1100; J2710; J0690; J2405; J2003; J3010; J2795; J2704; J1171; J0665; J1596